=== PATIENT | female | born 1950 | race Asian ===

== ENCOUNTER 2024-06-12 10:40 | Inpatient (IN) | payer MEDICARE, OTHER ==
[~2024-06-12] VITALS: Ht 152.4 cm; Wt 62.0 kg
[2024-06-12] MEDS ORDERED: CARV3 PO (10:48)
[2024-06-12] MEDS ORDERED: METF-1211 PO (10:48)
[2024-06-12] MEDS ORDERED: SACU1TAB PO (10:48)
[2024-06-12] MEDS ORDERED: ATOR10TA PO (10:48)
[2024-06-12 11:07] LABS: BASOPHILS % (AUTO) 0.9 % (0.0-2.0); HEMATOCRIT 42.1 % (36-46); HEMOGLOBIN 13.7 g/dL (12.0-16.0); LYMPHOCYTES # (AUTO) 1.8 K/uL (1.0-4.8); LYMPHOCYTES % (AUTO) 22.4 % (22.0-44.0); MEAN CORPUSCULAR HEMOGLOBIN 30.4 pg (26.0-34.0); MEAN CORPUSCULAR HGB CONC 32.5 G/dL (31.0-37.0); MEAN CORPUSCULAR VOLUME 94 fL (80-100); MONOCYTES # (AUTO) 0.2 K/uL (0.1-1.0); NEUTROPHILS # (AUTO) 5.7 K/uL (1.8-7.7); NEUTROPHILS % (AUTO) 72.7 % (40.0-70.0); PLATELET COUNT (AUTO) 282 K/uL (150-450); RED CELL DISTRIBUTION WIDTH 12.7 % (11.5-14.5); WHITE BLOOD COUNT (AUTO) 7.9 K/uL (4.5-11.0)
[2024-06-12 11:35] LABS: TROPONIN I-HIGH SENSITIVITY 10 ng/L (<51)
[2024-06-12 11:39] LABS: ALANINE AMINOTRANSFERASE 32 U/L (12-78); ALKALINE PHOSPHATASE 110 U/L (46-116); ANION GAP 6 mmol/L (8-16); ASPARTATE AMINOTRANSFERASE 14 U/L (15-37); BILIRUBIN,TOTAL 0.9 mg/dL (0.1-1.0); CALCIUM, TOTAL 8.7 mg/dL (8.8-10.5); CARBON DIOXIDE 31 mmol/L (22-29); CHLORIDE 98 mmol/L (98-107); CREATININE 1.48 mg/dL (0.60-1.30); GLOMERULAR FILTR. RATE CALC 35 mL/min (>60); LIPASE 50 U/L (16-77); POTASSIUM 4.8 mmol/L (3.5-5.1); SODIUM SERUM 135 mmol/L (136-145); TOTAL PROTEIN, SERUM 7.1 g/dL (6.4-8.2); UREA NITROGEN, BLOOD 26 mg/dL (7-18)
[2024-06-12 11:40] LABS: GLUCOSE,RANDOM 501 mg/dL (70-110)
[2024-06-12] MEDS: ONDANSETRON HCL 4 MG/2 ML VIAL IVP ONE (11:53)
[2024-06-12] MEDS: INSULIN REGULAR, HUMAN 100 UNITS/ML IVP ONE (11:54)
[2024-06-12] MEDS: SODIUM CHLORIDE 0.9% 1,000 ML IV ONE ×2 (12:03→14:14)
[2024-06-12] MEDS ORDERED: DEXTROSE 50%-WATER 25 GM/50 ML SYRINGE IVP PRN (14:15)
[2024-06-12] MEDS ORDERED: ACETAMINOPHEN 325 MG TABLET PO PRN (14:30)
[2024-06-12] MEDS: INSULIN GLARGINE,HUM.REC.ANLOG 100 UNITS/ML SQ SCH (14:48)
[2024-06-12] MEDS: HEPARIN SODIUM,PORCINE 5,000 UNITS/ML VIAL SQ SCH (15:08)
[2024-06-12 17:08] LABS: APPEARANCE,URINE HAZY (CLEAR); BILIRUBIN,URINE NEGATIVE (NEGATIVE); COLOR,URINE COLORLESS (YELLOW); GLUCOSE, URINE (UA) 300-500 mg/dL (NEGATIVE); KETONES,URINE NEGATIVE (NEGATIVE); LEUKOCYTE ESTERASE ,URINE LARGE (NEGATIVE); NITRATE,URINE NEGATIVE (NEGATIVE); OCCULT BLOOD,URINE NEGATIVE (NEGATIVE); PROTEIN,URINE NEGATIVE (NEGATIVE); SPECIFIC GRAVITIY, URINE 1.004 (1.003-1.030); UROBILINOGEN,URINE <=1.0 mg/dL (<=1.0)
[2024-06-12 17:20] LABS: BACTERIA,URINE Few /HPF (None Seen); RBC,URINE None Seen /HPF (0-2); SQUAMOUS EPITHELIAL CELL,UR Few /LPF (None Seen)
[2024-06-12] MEDS: INSULIN LISPRO 100 UNITS/ML SQ PRN (18:10)
[2024-06-12] MEDS: DOCUSATE SODIUM 100 MG CAPSULE PO SCH (20:26)
[2024-06-12 21:26] LABS: GLUCOMETER DEV NAME(LOC) ER.7; GLUCOSE,POINT OF CARE 197 MG/DL (70-110)
[2024-06-12 22:01] VITALS: BP 122/62; PULSE 65; RESP 18; TEMP 97.9; O2SAT 96
[2024-06-12 23:50] VITALS: BP 123/65; PULSE 64; RESP 18; TEMP 98; O2SAT 98
[2024-06-13 00:41] LABS: GLUCOMETER DEV NAME(LOC) 5N.1D; GLUCOSE,POINT OF CARE 212 MG/DL (70-110)
[2024-06-13 01:46] LABS: GLUCOMETER DEV NAME(LOC) 5N.1D; GLUCOSE,POINT OF CARE 65 MG/DL (70-110)
[2024-06-13 01:46] LABS: GLUCOMETER DEV NAME(LOC) 5N.1D; GLUCOSE,POINT OF CARE 85 MG/DL (70-110)
[2024-06-13 01:46] LABS: GLUCOMETER DEV NAME(LOC) 5N.1D; GLUCOSE,POINT OF CARE 137 MG/DL (70-110)
[2024-06-13] MEDS ORDERED: ASPI81TA87 PO (03:42)
[2024-06-13 04:52] VITALS: BP 143/65; PULSE 80; RESP 17; TEMP 97.5; O2SAT 97
[2024-06-13 07:31] LABS: GLUCOMETER DEV NAME(LOC) 5S.2D; GLUCOSE,POINT OF CARE 449 MG/DL (70-110)
[2024-06-13 08:00] VITALS: BP 128/60; PULSE 66; RESP 18; TEMP 97.9; O2SAT 97
[2024-06-13] MEDS: INSULIN GLARGINE,HUM.REC.ANLOG 100 UNITS/ML SQ ONE (08:41)
[2024-06-13] MEDS: FAMOTIDINE 20 MG TABLET PO SCH (08:42)
[2024-06-13 09:43] VITALS: BP 128/60; PULSE 66; RESP 18; TEMP 97.9; O2SAT 97
[2024-06-13 11:46] LABS: GLUCOMETER DEV NAME(LOC) 5N.1D; GLUCOSE,POINT OF CARE 368 MG/DL (70-110)
[2024-06-13 12:00] VITALS: BP 141/73; PULSE 87; RESP 18; TEMP 98.2; O2SAT 99
[2024-06-13] MEDS ORDERED: SODIUM CHLORIDE 0.9% 250 ML IV ONE (14:44)
[2024-06-13] MEDS: CefTRIAXone 1 GM/DEXTROSE 50 ML IV SCH (15:05)
[2024-06-13 16:03] VITALS: BP 148/84; PULSE 71; RESP 18; TEMP 98.2; O2SAT 99
[2024-06-13] MEDS: MAGNESIUM HYDROXIDE SUSPENSION 30 ML UDCUP PO PRN (17:47)
[2024-06-13 19:42] VITALS: BP 131/55; PULSE 72; RESP 18; TEMP 98.2; O2SAT 99
[2024-06-13 20:51] LABS: GLUCOMETER DEV NAME(LOC) 5N.1D; GLUCOSE,POINT OF CARE 220 MG/DL (70-110)
[2024-06-13 23:31] LABS: GLUCOMETER DEV NAME(LOC) 5S.2D; GLUCOSE,POINT OF CARE 201 MG/DL (70-110)
[2024-06-14 00:24] VITALS: BP 133/71; PULSE 72; RESP 18; TEMP 97.9; O2SAT 96
[2024-06-14 00:31] LABS: GLUCOMETER DEV NAME(LOC) 5N.1D; GLUCOSE,POINT OF CARE 255 MG/DL (70-110)
[2024-06-14 01:01] LABS: GLUCOMETER DEV NAME(LOC) 5S.2D; GLUCOSE,POINT OF CARE 188 MG/DL (70-110)
[2024-06-14 04:00] VITALS: BP 138/73; PULSE 78; RESP 19; TEMP 97.8; O2SAT 98
[2024-06-14 06:06] LABS: GLUCOMETER DEV NAME(LOC) 5N.1D; GLUCOSE,POINT OF CARE 198 MG/DL (70-110)
[2024-06-14 06:27] LABS: BASOPHILS % (AUTO) 0.6 % (0.0-2.0); EOSINOPHILS % (AUTO) 1.5 % (1.0-6.0); HEMATOCRIT 38.1 % (36-46); HEMOGLOBIN 12.6 g/dL (12.0-16.0); LYMPHOCYTES # (AUTO) 1.9 K/uL (1.0-4.8); LYMPHOCYTES % (AUTO) 22.4 % (22.0-44.0); MEAN CORPUSCULAR HEMOGLOBIN 30.8 pg (26.0-34.0); MEAN CORPUSCULAR HGB CONC 33.1 G/dL (31.0-37.0); MEAN CORPUSCULAR VOLUME 93 fL (80-100); MONOCYTES # (AUTO) 0.4 K/uL (0.1-1.0); MONOCYTES % (AUTO) 4.7 % (2.0-9.0); NEUTROPHILS # (AUTO) 5.9 K/uL (1.8-7.7); NEUTROPHILS % (AUTO) 70.8 % (40.0-70.0); PLATELET COUNT (AUTO) 249 K/uL (150-450); RED CELL DISTRIBUTION WIDTH 12.9 % (11.5-14.5); WHITE BLOOD COUNT (AUTO) 8.4 K/uL (4.5-11.0)
[2024-06-14 06:42] LABS: CREATININE 1.2 mg/dL (0.60-1.30)
[2024-06-14 06:43] LABS: CALCIUM, TOTAL 8.6 mg/dL (8.8-10.5)
[2024-06-14 08:15] VITALS: BP 127/65; PULSE 104; RESP 18; TEMP 98; O2SAT 98
[2024-06-14 08:17] VITALS: PULSE 107
[2024-06-14] MEDS: INSULIN GLARGINE,HUM.REC.ANLOG 100 UNITS/ML SQ SCH (09:44)
[2024-06-14] MEDS ORDERED: INSLAN SQ (10:37)
[2024-06-14] MEDS ORDERED: CIPR250T6 PO (10:38)
[2024-06-14 11:52] VITALS: BP 124/65; PULSE 80; RESP 18; TEMP 98; O2SAT 98
[2024-06-14 18:56] LABS: GLUCOMETER DEV NAME(LOC) 5N.1D; GLUCOSE,POINT OF CARE 268 MG/DL (70-110)
== END 2024-06-14 14:05 | disposition home or self-care (01) | DRG 638 ==
LOC: EMS 11:50 → EDH 14:39 → 5S 21:50
PROVIDERS: ADMIT Internal Medicine; ATTEND Internal Medicine
DX: E11.65 Type 2 diabetes mellitus with hyperglycemia (principal); N17.9 Acute kidney failure, unspecified; N39.0 Urinary tract infection, site not specified; I11.0 Hypertensive heart disease with heart failure; I50.9 Heart failure, unspecified; E86.0 Dehydration; I07.1 Rheumatic tricuspid insufficiency; E78.00 Pure hypercholesterolemia, unspecified; Z91.148 Patient's other noncompliance with medication regimen for other reason; Z79.4 Long term (current) use of insulin; Z91.199 Patient's noncompliance with other medical treatment and regimen due to unspecified reason; Z83.3 Family history of diabetes mellitus
CPT/HCPCS: 80048; 80076; 81001; 82962; 83690; 84484; 85025; 87086; 93005; 93306; 99285; J0696; J1644; J1815; J2405; J7030; J7050